=== PATIENT | female | born 1995 | race Caucasian/White ===

== ENCOUNTER 2017-04-24 00:30 | Observation (INO) | payer OTHER ==
[~2017-04-24] VITALS: Ht 167.6 cm; Wt 78.9 kg
[2017-04-24] MEDS ORDERED: PREN1SGL25 PO (01:04)
[2017-04-24 01:24] VITALS: BP 127/76
[2017-04-24 01:42] LABS: BASOPHILS # (AUTO) 0.3 K/uL (0.00-0.22); BASOPHILS % (AUTO) 3.6 % (0.0-2.0); EOSINOPHILS # (AUTO) 0.2 K/uL (0-0.4); EOSINOPHILS % (AUTO) 2.1 % (0.0-4.0); HEMOGLOBIN 10.6 g/dL (12.0-16.0); LYMPHOCYTES # (AUTO) 1.7 K/uL (2.5-16.5); MEAN CORPUSCULAR HEMOGLOBIN 29 pg (27-31); MEAN CORPUSCULAR HGB CONC 32 g/dL (33-37); MEAN CORPUSCULAR VOLUME 91 fL (80-94); MONOCYTES # (AUTO) 0.6 K/uL (0.8-1.0); MONOCYTES % (AUTO) 6.7 % (1.7-9.3); NEUTROPHILS # (AUTO) 5.9 K/uL (1.8-7.7); NEUTROPHILS % (AUTO) 67.6 % (42.2-75.2); PLATELET COUNT (AUTO) 224 K/uL (140-450); RED BLOOD CELL COUNT(AUTO) 3.64 MIL/uL (4.20-5.40); RED CELL DISTRIBUTION WIDTH 12.1 % (11.6-13.7); WHITE BLOOD COUNT (AUTO) 8.7 K/uL (4.5-11.0)
[2017-04-24 01:52] LABS: ANION GAP 13.3 (8-16); CARBON DIOXIDE 25.6 mmol/L (21-32); CREATININE 0.6 mg/dL (0.6-1.3); POTASSIUM 3.9 mmol/L (3.5-5.1)
[2017-04-24 01:57] LABS: ALBUMIN 3.2 g/dL (3.4-5.0); TOTAL BILIRUBIN 0.2 mg/dL (0.0-1.0)
== END 2017-04-24 03:55 | disposition home or self-care (01) ==
LOC: MLD 00:30
PROVIDERS: ADMIT Obstetrics & Gynecology; ATTEND Obstetrics & Gynecology
DX: O99.612 Diseases of the digestive system complicating pregnancy, second trimester (principal); K80.20 Calculus of gallbladder without cholecystitis without obstruction; O26.832 Pregnancy related renal disease, second trimester; N13.2 Hydronephrosis with renal and ureteral calculous obstruction; Z3A.24 24 weeks gestation of pregnancy
CPT/HCPCS: 36415; 76705; 76805; 80053; 82150; 85025; G0378; Q0092

== ENCOUNTER 2017-05-26 02:50 | Observation (INO) | payer OTHER ==
[~2017-05-26] VITALS: Ht 167.6 cm; Wt 81.6 kg
[~2017-05-26 02:50] MED LIST: PREN1SGL25 PO
[2017-05-26 03:31] VITALS: BP 108/65
== END 2017-05-26 04:48 | disposition left against medical advice (07) ==
LOC: MLD 02:50
PROVIDERS: ADMIT Obstetrics & Gynecology; ATTEND Obstetrics & Gynecology
DX: O36.8130 Decreased fetal movements, third trimester, not applicable or unspecified (principal); Z3A.29 29 weeks gestation of pregnancy
CPT/HCPCS: 76815; G0378; Q0092; 81000

== ENCOUNTER 2017-11-22 22:36 | Emergency (ER) | payer MEDICAID ==
[~2017-11-22] VITALS: Ht 167.6 cm; Wt 69.9 kg
[2017-11-22 22:37] VITALS: BP 128/81
--- NOTE | 2017-11-22 22:49 | NUR ---
TO LOBBY, A/W BED, EKG DONE, AMB, VSS, ERMD NOTED
[2017-11-22] MEDS ORDERED: LORazepam 1 MG TAB PO ONE (23:45)
--- NOTE | 2017-11-22 23:52 | NUR ---
22Y/F PT. PRESESNT TO ED WITH SHAKING, NUMBNESS AND TINGLING ON HER BOTH HANDS, STARTED 10 MINUTES AGO, WITH CHEST PAIN, DENIES USED OF DRUGS. AAO X4, AMBULATORY WITH STDEAY GAIT. RESPIRATIONS ROOM AIR, EVEN AND UNLABORED. DENIES PAIN AT THIS TIME. BODY SHAKINESS NOTED. VSS, ER MADE AWARE OF PT. STATUS.
--- NOTE | 2017-11-23 00:37 | NUR ---
PT AMBULATED TO BATHROOM WITHOUT INCIDENCE
[2017-11-23 00:55] VITALS: BP 119/73
--- NOTE | 2017-11-23 00:56 | NUR ---
Patient discharged with v/s stable. Written and verbal after care instructions given and explained. Patient alert, oriented and verbalized understanding of instructions. Ambulatory with steady gait. All questions addressed prior to discharge. ID band removed. Patient advised to follow up with PMD. Rx of ATIVAN 0.5 MG given. Patient educated on indication of medication including possible reaction and side effects. Opportunity to ask questions provided and answered.
== END 2017-11-23 00:56 | disposition home or self-care (01) ==
LOC: MED 22:36
DX: F41.9 Anxiety disorder, unspecified (principal); Z79.899 Other long term (current) drug therapy
CPT/HCPCS: 71045; 93005; 99284

== ENCOUNTER 2018-09-20 17:47 | Emergency (ER) | payer MEDICAID ==
[~2018-09-20] VITALS: Ht 167.6 cm; Wt 76.2 kg
[2018-09-20 17:53] VITALS: BP 136/88
--- NOTE | 2018-09-20 17:57 | NUR ---
PT VSS; NOT IN DISTRESS; AMB TO LOBBY ALONE
--- NOTE | 2018-09-20 19:07 | NUR ---
PATIENT AMBULATED TO ER BED 7
--- NOTE | 2018-09-20 19:15 | NUR ---
PT TO ED WITH C/O ANXIETY X TODAY. PT STATES "IM NOT SURE I MAY BE STRESSED ABOUT LIFE" PT REPORTS PREVIOUS EPISODE X 1 YEAR AGO. NO OBVIOUS S/S OF DISTRESS NOTED. PT PLACED INTO BED, PENDING MD CHAN. PMH--ANXIETY NKDA
[2018-09-20 20:25] VITALS: BP 128/71
== END 2018-09-20 20:26 | disposition home or self-care (01) ==
LOC: MED 17:47
DX: R07.9 Chest pain, unspecified (principal); R03.0 Elevated blood-pressure reading, without diagnosis of hypertension; Z79.899 Other long term (current) drug therapy
CPT/HCPCS: 71045; 93005; 99283; Q0092